=== PATIENT | female | born 1980 | race Two or more races ===

== ENCOUNTER 2018-10-16 17:47 | Emergency (ER) | payer OTHER ==
[~2018-10-16] VITALS: Ht 154.9 cm; Wt 48.0 kg
--- NOTE | 2018-10-16 18:28 | NUR ---
CONTACT TO PT, PT TO BR, GAIT [id number].
[2018-10-16 18:29] LABS: BASOPHILS # (AUTO) 0.02 x10^3/uL (0-0.1); BASOPHILS % (AUTO) 0 % (0-1); EOSINOPHILS # (AUTO) 0.08 x10^3/uL (0-0.4); EOSINOPHILS % (AUTO) 1 % (1-7); LYMPHOCYTES # (AUTO) 1.09 x10^3/uL (1-3.4); LYMPHOCYTES % (AUTO) 14 % (22-44); MD NO; MEAN CORPUSCULAR HEMOGLOBIN 27.3 pg (27.0-34.8); MEAN CORPUSCULAR HGB CONC 33.3 g/dL (32.4-35.8); MEAN CORPUSCULAR VOLUME 81.9 fL (80-100); MEAN PLATELET VOLUME 7.6 fL (7.4-10.4); MONOCYTES # (AUTO) 0.42 x10^3/uL (0.2-0.8); MONOCYTES % (AUTO) 5 % (2-9); NEUTROPHILS # (AUTO) 6.25 x10^3/uL (1.8-6.8); NEUTROPHILS % (AUTO) 79 % (42-75); PLATELET COUNT 402 x10^3/uL (130-400); RED BLOOD COUNT 4.48 x10^6/uL (3.82-5.3); RED CELL DISTRIBUTION WIDTH 13.9 % (9.6-15.2)
--- NOTE | 2018-10-16 18:31 | NUR ---
[age]YR OLD FEMALE HERE WITH C/O "LAST NIGHT, MY STOMACH HAD PAIN, NOW THE PAIN IS LIKE SPASMS, COMES AND GOES. " DENIES N/V/D OR CONSTIPATION.
--- NOTE | 2018-10-16 18:36 | NUR ---
DR SANCHEZ AT BEDSIDE TO EVAL PT
[2018-10-16 18:42] LABS: ALANINE AMINOTRANSFERASE 20 U/L (12-78); ALBUMIN 3.8 g/dL (3.4-5.0); ANION GAP 7 mmol/L (5-15); CALCIUM 9.1 mg/dL (8.5-10.1); CHLORIDE 104 mmol/L (98-107); CREATININE 0.91 mg/dL (0.55-1.02)
[2018-10-16 18:44] LABS: ALKALINE PHOSPHATASE 82 U/L (45-117); BILIRUBIN,TOTAL 0.2 mg/dL (0.2-1.0); TOTAL PROTEIN 8.2 g/dL (6.4-8.2)
[2018-10-16 18:50] LABS: HCG UR SG 1.007 (1.003-1.030); MICROSCOPIC AUTO
[2018-10-16 18:53] LABS: CULTURE INDICATED? YES
[2018-10-16] MEDS ORDERED: OMNIPAQUE 350 MG/ML, 100ML BOTTLE ONE (19:00)
--- NOTE | 2018-10-16 19:01 | NUR ---
REPORT TO PATRICIO GIBSON.
--- NOTE | 2018-10-16 19:03 | NUR ---
REPORT FROM RICARDO GIBSON. PT RESTING. PIV PLACED. VSS. FAMILY AT BEDSIDE AND CALL LIGHT IN REACH
--- NOTE | 2018-10-16 19:14 | NUR ---
PT TO CT
--- NOTE | 2018-10-16 20:04 | NUR ---
PT RESTING. VSS. PT TO US.
[2018-10-16] MEDS ORDERED: KETOROLAC 30 MG/1 ML ONE (20:54)
--- NOTE | 2018-10-16 20:57 | NUR ---
PT MEDICATED FOR PAIN. MD TO RE EVALUATE. CALL LIGHT IN REACH
[2018-10-16] MEDS ORDERED: KETOROLAC 30 MG/1 ML IVPush ONE (21:00)
[2018-10-16 21:15] VITALS: BP 121/79
--- NOTE | 2018-10-16 21:34 | NUR ---
Patient given discharge instructions and they have confirmed that they understand the instructions. Patient ambulatory with steady gait.
== END 2018-10-16 21:36 | disposition home or self-care (01) ==
LOC: ED 19:17
DX: N83.291 Other ovarian cyst, right side (principal)
CPT/HCPCS: 36415; 74177; 76830; 80053; 81001; 81025; 83690; 85025; 87086; 96374; 99284; J1885; Q9967